=== PATIENT | male | born 1955 | race Caucasian/White ===

== ENCOUNTER 2020-06-09 05:58 | Inpatient (IN) | payer OTHER, BC ==
[2020-06-03 17:16] VITALS: BMI 25.5
[2020-06-09] MEDS ORDERED: TRANEXAMIC ACID 1000 MG/10 ML VIAL IVPUSH ONE (06:27)
[2020-06-09] MEDS ORDERED: CELECOXIB 200 MG CAPSULE ONE (06:57)
[2020-06-09] MEDS ORDERED: CELECOXIB 200 MG CAPSULE PO ONE (07:00)
[2020-06-09] MEDS ORDERED: MIDAZOLAM HCL 2 MG/2 ML SINGLE DOSE VIAL ONE (07:02)
[2020-06-09] MEDS ORDERED: SODIUM CHLORIDE 0.9% P/F 10 ML VIAL IJ ONE (07:02)
[2020-06-09] MEDS ORDERED: BUPIVACAINE LIPOSOME/PF (EXPAREL) 266 MG/20 ML VIAL ONE (07:02)
[2020-06-09] MEDS ORDERED: VANCOMYCIN 1,000 MG VIAL (RESTRICTED TO ID ONLY) ONE (07:14)
[2020-06-09] MEDS ORDERED: ceFAZolin SODIUM 1 GM VIAL ONE ×2 (07:14→08:09)
[2020-06-09] MEDS ORDERED: MAGNESIUM HYDROX 2400MG/30ML ORAL SUSPENSION 30 ML CUP PO PRN (07:58)
[2020-06-09] MEDS ORDERED: MAG HYDROX/AL HYDROX/SIMETH 30 ML UNIT-DOSE CUP PO PRN (07:58)
[2020-06-09] MEDS ORDERED: LACTATED RINGERS SOLUTION 1,000 ML IV SCH (08:00)
[2020-06-09] MEDS ORDERED: CEFAZOLIN 2 GM in DEXTROSE 5%-WATER - 50 ML IVPB ONE (08:00)
[2020-06-09] MEDS ORDERED: PROPOFOL 20 ML ONE ×2 (08:09)
[2020-06-09] MEDS ORDERED: LIDOCAINE HCL/PF 2% SDV 5ML VIAL ONE (08:09)
[2020-06-09] MEDS ORDERED: ONDANSETRON 4 MG/2 ML VIAL ONE ×2 (08:23→10:31)
[2020-06-09] MEDS ORDERED: DEXAMETHASONE SOD PHOSPHATE 4 MG/1 ML VIAL ONE (08:23)
[2020-06-09] MEDS ORDERED: THROMBIN (RECOMBINANT) 5,000 UNIT VIAL TP ONE (08:58)
[2020-06-09] MEDS ORDERED: ACETAMINOPHEN 325 MG TABLET (FP) ONE (10:09)
[2020-06-09] MEDS ORDERED: oxyCODONE HCL 5 MG TABLET PO PRN (10:09)
[2020-06-09] MEDS: ACETAMINOPHEN 325 MG TABLET (FP) PO SCH ×4 (10:16→22:42)
[2020-06-09] MEDS: ONDANSETRON 4 MG/2 ML VIAL IVPUSH PRN ×3 (10:34→22:48)
[2020-06-09] MEDS: SENNOSIDES/DOCUSATE COMBO (SENNA PLUS) TABLET (UD) PO SCH ×2 (12:47→22:47)
[2020-06-09] MEDS: MULTIVITAMINS (DAILY MVI) TABLET (FP) PO SCH (12:48)
[2020-06-09] MEDS: PANTOPRAZOLE 40 MG TABLET PO SCH (12:48)
[2020-06-09] MEDS: oxyCODONE HCL 5 MG TABLET PO PRN ×3 (14:45→20:32)
[2020-06-09] MEDS: CEFAZOLIN 2 GM/D5W 2 GM/50 ML ML IVPB SCH (16:10)
[2020-06-09] MEDS: oxyCODONE HCL 10 MG SUSTAINED ACTING TABLET PO SCH (22:48)
[2020-06-10] MEDS: CEFAZOLIN 2 GM/D5W 2 GM/50 ML ML IVPB SCH (00:09)
[2020-06-10] MEDS: ACETAMINOPHEN 325 MG TABLET (FP) PO SCH ×2 (04:04→10:58)
[2020-06-10] MEDS: oxyCODONE HCL 5 MG TABLET PO PRN ×2 (04:05→06:47)
[2020-06-10] MEDS: ONDANSETRON 4 MG/2 ML VIAL IVPUSH PRN (07:22)
[2020-06-10] MEDS ORDERED: ASPIRIN 325 MG TABLET PO SCH (08:00)
[2020-06-10 08:03] LABS: HEMOGLOBIN 11.7 GM/dl (11.7-16.9); MCH 33.2 pg (25.7-33.7); MCHC 34.5 g/dl (32.0-35.9); MEAN CELL VOLUME 96.4 fl (80-96); MEAN PLT VOLUME 8.4 fl (7.5-11.1); PLATELET COUNT 166 K/MM3 (134-434); RBC 3.53 M/mm3 (4.00-5.60); RDW 12.5 % (11.9-15.9); WHITE BLOOD COUNT 11.6 K/mm3 (4.0-10.8)
[2020-06-10] MEDS: oxyCODONE HCL 10 MG SUSTAINED ACTING TABLET PO SCH (09:09)
[2020-06-10] MEDS: PANTOPRAZOLE 40 MG TABLET PO SCH (09:09)
[2020-06-10] MEDS: SENNOSIDES/DOCUSATE COMBO (SENNA PLUS) TABLET (UD) PO SCH (09:09)
[2020-06-10] MEDS: MULTIVITAMINS (DAILY MVI) TABLET (FP) PO SCH (09:09)
[2020-06-10 15:56] VITALS: BP 118/61; PULSE 53; TEMP 98.5
== END 2020-06-10 15:57 | disposition home health service (06) | DRG 470 ==
LOC: FM/S 05:58
PROVIDERS: ADMIT Orthopaedic Surgery; ATTEND Orthopaedic Surgery
PROC: 8E0Y0CZ Robotic Assisted Procedure of Lower Extremity, Open Approach (ICD-10-PCS; 2020-06-09)
PROC: 0SRC0JA Replacement of Right Knee Joint with Synthetic Substitute, Uncemented, Open Approach (ICD-10-PCS; principal; 2020-06-09 08:20)
DX: M17.11 Unilateral primary osteoarthritis, right knee (principal)
CPT/HCPCS: 36415; 73560-TC-RT-FY; 85027; 94760; 97010-GP; 97116-GP; 97161-GP